=== PATIENT | female | born 1970 | race Caucasian/White ===

== ENCOUNTER → 2017-11-28 | Outpatient (CLI) | payer OTHER | LOC: CIMAGING 07:03 | PROVIDERS: ATTEND Nurse Practitioner Family | DX: E04.2 Nontoxic multinodular goiter (principal); R59.0 Localized enlarged lymph nodes | CPT/HCPCS: 76536-PO ==

== ENCOUNTER 2018-02-10 07:06 | Inpatient (IN) | payer SELFPAY ==
[2018-02-10] MEDS ORDERED: NS 1,000 ML IV ONE (07:09)
--- NOTE | 2018-02-10 07:14 | EDPHY ---
HPI/HX/ROS/PE/MDM Narrative: CHIEF COMPLAINT: Abdominal pain HPI: The patient is a 47 y/o female with a history of a tubal ligation arriving via EMS complaining of a sharp, midline abdominal pain, onset at 01:30, 6 hours ago. Prior to developing the pain she had some gas pain. However, she woke up from her sleep with the sharp, diffuse abdominal pain. This pain feels similar to the pain she had while giving . While en route to the hospital she was given 150mcg IV Fentanyl which improved her pain from 10/10 to 4/10. She has had a decreased appetite associated with the pain. She denies urinary symptoms but states that the last time she urinated it was more concentrated and had an odd smell. No fever, headache, chest pain, shortness of breath, bowel complaints , numbness, paresthesias. REVIEW OF SYSTEMS: Aside from elements discussed in the HPI, a comprehensive 10-point review of systems was reviewed and is negative. 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 ENT: Eyes are normal to inspection. ENT inspection normal. Neck: Normal inspection. Full range of motion. Respiratory: No respiratory distress. Breath sounds normal bilaterally. Cardiovascular: Regular rate and rhythm. Strong peripheral pulses. Normal cap refill. Abdomen: Moderate suprapubic tenderness to palpation. There are no peritoneal signs. There are normal bowel sounds. Back: Normal to inspection. No tenderness to palpation. Skin: Normal color. No rash. Warm and dry. Extremities: Normal appearance. Full range of motion. Neuro: Oriented x3. Normal motor function. Normal sensory function. ED Course: 709: I met EMS upon arrival. 827: Reassessed patient and discussed laboratory findings. I have also discussed plan for abdominopelvic CT, which she is comfortable with. She is still in pain, 15mg IV Toradol and 1L IV NS administered. 15: I spoke with Dr. Stone, radiologist, who reports the patient has acute appendicitis. General surgery will be paged. 20: Reassessed patient and discussed imaging findings. I have also discussed plan for surgery, which she is comfortable with. 0925: I consulted with Dr. Rai, general surgeon, who agrees to consult and admit this patient. - Data Points Imaging Results: Imaging Impressions Abdomen CT 02/10/18 08:29 Impression: 1. Appendicitis, possibly perforated, with regional inflammation. A small, 5 mm , calculus (possibly appendicolith) resides inferiorly medial to the appendix. Trace fluid. No abscess. 2. Enlarged uterus containing numerous intramural leiomyomas. Findings discussed with Emergency Department physician, Chinmay Dias MD at 02/10/2018 9:20. Imaging: Discussed imaging studies w/ call center agent Radiologist, I viewed and interpreted images myself Laboratory Results: Laboratory Results 02/10/18 07:18 02/10/18 07:18 02/10/18 02/10/18 02/10/18 07:58 07:18 07:18 WBC RBC Hgb Hct MCV MCH MCHC RDW Plt Count MPV Neut % (Auto) Lymph % (Auto) [place] % (Auto) Eos % (Auto) Baso % (Auto) Nucleat RBC Rel Count Absolute Neuts (auto) Absolute Lymphs (auto) Absolute Monos (auto) Absolute Eos (auto) Absolute Basos (auto) Absolute Nucleated RBC Immature Gran % Immature Gran # Sodium 136 mEq/L mEq/L (135-145) Potassium 3.9 mEq/L mEq/L (3.5-5.2) Chloride 101 mEq/L mEq/L (97-110) Carbon Dioxide 21 mEq/l L mEq/l (22-31) Anion Gap 14 mEq/L mEq/L (6-14) BUN 8 mg/dL mg/dL (7-23) Creatinine 0.7 mg/dL mg/dL (0.6-1.0) Estimated GFR > 60 Glucose 124 mg/dL H mg/dL (70-100) Calcium 9.5 mg/dL mg/dL (8.5-10.4) Beta HCG, Qual NEGATIVE Urine Color JEREMIAH Urine Appearance MODERATELY TURBID Urine pH 5.0 (5.0-7.5) Ur Specific [place] 1.025 (1.002-1.030) Urine Protein NEGATIVE (NEGATIVE) Urine Ketones 2+ H (NEGATIVE) Urine Blood NEGATIVE (NEGATIVE) Urine Nitrate NEGATIVE (NEGATIVE) Urine Bilirubin NEGATIVE (NEGATIVE) Urine Urobilinogen 2.0 EU H EU (0.2-1.0) Ur Leukocyte Esterase NEGATIVE (NEGATIVE) Urine Glucose NEGATIVE (NEGATIVE) 02/10/18 07:18 WBC 10.61 10^3/uL H 10^3/uL (3.80-9.50) RBC 4.53 10^6/uL 10^6/uL (4.18-5.33) Hgb 13.3 g/dL g/dL (12.6-16.3) Hct 39.6 % % (38.0-47.0) MCV 87.4 fL fL (81.5-99.8) MCH 29.4 pg pg (27.9-34.1) MCHC 33.6 g/dL g/dL (32.4-36.7) RDW 13.3 % % (11.5-15.2) Plt Count 266 10^3/uL 10^3/uL (150-400) MPV 10.5 fL fL (8.7-11.7) Neut % (Auto) 85.8 % H % (39.3-74.2) Lymph % (Auto) 8.4 % L % (15.0-45.0) [place] % (Auto) 4.5 % % (4.5-13.0) Eos % (Auto) 0.2 % L % (0.6-7.6) Baso % (Auto) 0.6 % % (0.3-1.7) Nucleat RBC Rel Count 0.0 % % (0.0-0.2) Absolute Neuts (auto) 9.11 10^3/uL H 10^3/uL (1.70-6.50) Absolute Lymphs (auto) 0.89 10^3/uL L 10^3/uL (1.00-3.00) Absolute Monos (auto) 0.48 10^3/uL 10^3/uL (0.30-0.80) Absolute Eos (auto) 0.02 10^3/uL L 10^3/uL (0.03-0.40) Absolute Basos (auto) 0.06 10^3/uL 10^3/uL (0.02-0.10) Absolute Nucleated RBC 0.00 10^3/uL 10^3/uL (0-0.01) Immature Gran % 0.5 % % (0.0-1.1) Immature Gran # 0.05 10^3/uL 10^3/uL (0.00-0.10) Sodium Potassium Chloride Carbon Dioxide Anion Gap BUN Creatinine Estimated GFR Glucose Calcium Beta HCG, Qual Urine Color Urine Appearance Urine pH Ur Specific [place] Urine Protein Urine Ketones Urine Blood Urine Nitrate Urine Bilirubin Urine Urobilinogen Ur Leukocyte Esterase Urine Glucose Medications Given: Potassium Chloride/Dextrose/Sod Cl (D5w 1/2 Ns W/ 20 Kcl/L) 1,000 mls @ 75 mls/ hr IV CONT TORSTEN Stop: 08/09/18 09:44 Last Admin: 02/10/18 11:31 Dose: 1,000 mls Discontinued Medications Sodium Chloride (Ns) 1,000 mls @ 0 mls/hr IV EDNOW ONE; Wide Open PRN Reason: Protocol Stop: 02/10/18 07:10 Last Admin: 02/10/18 07:17 Dose: 1,000 mls Ceftriaxone Sodium 2 gm/ (Sodium Chloride) 50 mls @ 100 mls/hr IV EDNOW ONE PRN Reason: Protocol Stop: 02/10/18 10:13 Last Admin: 02/10/18 12:06 Dose: 50 mls Ketorolac Tromethamine (Toradol) 15 mg IVP EDNOW ONE Stop: 02/10/18 08:37 Last Admin: 02/10/18 08:39 Dose: 15 mg General Time Seen by Provider: 02/10/18 07:09 Initial Vital Signs: Initial Vital Signs Temperature (C) 37.0 C 02/10/18 07:10 Heart Rate 82 02/10/18 07:10 Respiratory Rate 18 02/10/18 07:10 Blood Pressure 128/76 H 02/10/18 07:10 O2 Sat (%) 97 02/10/18 07:10 O2 Delivery Mode Room Air Allergies/Adverse Reactions: Penicillins Allergy (Mild, Verified 02/10/18 11:57) Other-Enter Comments Home Medications: Medication Instructions Recorded Thyroid [[place] Thyroid 60 MG (*)] 30 mg PO DAILY 02/10/18 Departure - Departure Disposition: [facility] Inpatient Acute Clinical Impression: Acute appendicitis Qualifiers: Acute appendicitis type: unspecified acute appendicitis type Qualified Code(s) : K35.80 - Unspecified acute appendicitis Condition: Fair Report Scribed for: Chinmay Dias Report Scribed by: Mckenzie Merchant Date of Report: 02/10/18 Time of Report: 07:10 Physician Review and Approval Statement: Portions of this note were transcribed by an ED scribe. I personally performed the history, physical exam, and medical decision making; and confirm the accuracy of the information in the transcribed note.
[2018-02-10 07:22] LABS: PLATELET COUNT 266 10^3/uL (150-400)
[2018-02-10] MEDS ORDERED: KETOROLAC 30 MG/1 ML SDV IVP ONE (08:36)
[2018-02-10] MEDS ORDERED: IOPAMIDOL (ISOVUE 370) 100 ML BTL IV ONE (08:53)
[2018-02-10] MEDS ORDERED: ONDANSETRON 4 MG/2 ML VIAL IVP PRN ×2 (09:42→15:14)
[2018-02-10] MEDS ORDERED: ACETAMINOPHEN 325 MG TAB PO PRN (09:42)
[2018-02-10] MEDS ORDERED: PROMETHAZINE HCL 25 MG/ML INJ IVP PRN ×2 (09:42→15:14)
[2018-02-10] MEDS ORDERED: HYDROCODONE/APAP 5/325 TAB PO PRN ×2 (09:42→15:14)
[2018-02-10] MEDS ORDERED: D5W 1/2 NS W/ 20 KCl/L 1,000 ML IV SCH (09:45)
--- NOTE | 2018-02-10 10:11 | GHP ---
DATE OF ADMISSION: 02/10/2018 CHIEF COMPLAINT: Acute appendicitis. HISTORY OF PRESENT ILLNESS: The patient is a 47-year-old woman who 1 week ago started having left up per quadrant pain. She thought she was having gas pain. It would come and go. She was at a yoga re treat and again had the pain in the left upper quadrant; however, it migrated down to her pelvis area , so she originally thought that she was having some issues with her reproductive system. She then h ad pain by her rectum. When the pain woke her up with more of a right lower quadrant pain, she asked a nurse at the yoga retreat, and then she was brought to [facility]. CT scan shows inflamed appendix w ith possible fecalith outside of the appendix. She denies fevers. She denies vomiting. She does en dorse anorexia. PAST MEDICAL HISTORY: Hypothyroidism. PAST SURGICAL HISTORY: Tubal ligation. 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 She likes to do yoga and run. She is a nonsmoker. FAMILY HISTORY: Noncontributory. REVIEW OF SYSTEMS: Per HPI. PHYSICAL EXAMINATION: VITAL SIGNS: 37, 82, 128/76, 18, 97% room air. GENERAL: Pleasant, well-groo med, well-nourished woman sitting on gurney. Appears nontoxic. HEENT: Normocephalic. No gross hea ring deficits. Mucous membranes moist. Pupils equal and round. No scleral icterus. LUNGS: Clear to auscultation bilaterally. No increased work of breathing. CARDIAC: Regular rate. No peripheral edema. ABDOMEN: Bowel sounds are present. She is tender to palpation in the left upper quadrant. She has very minimal pain in the right lower quadrant or near her pelvis. MUSCULOSKELETAL: Normal nails. NEURO: Grossly intact. PSYCH: Mood and affect normal. RESULTS REVIEWED: Personally reviewed the results of her laboratory work, and she has ketones in her urine. Her chemistry panel is within normal limits. Beta HCG negative. Her white blood cell count is 10.61. I reviewed the results of her CT scan and see the concern of the extraluminal appendicoli th. There is also some lucent area in the uterus as well. IMPRESSION AND PLAN: The patient is a 47-year-old woman with possible perforated appendicitis. Cookie rkable that her white count is not more elevated and that she does not have a lot of pain in the righ t lower quadrant. I will take her to the operating room for a laparoscopic appendectomy with possibl e washout. I discussed that if it is not perforated, she may be able to go home today; however, if i t is perforated, she will require admission with additional IV antibiotics. Risks and benefits were discussed. She signed the informed consent. Her reaction to penicillin as a child was that she turn ed red. We discussed the possible cross reactivity with ceftriaxone, and we will proceed with giving it while watching her. /[id number]/MODL
--- NOTE | 2018-02-10 12:47 | ASMTCMCOM ---
CM Note CM Note Notes: Reviewed chart. Pt presented to the Emergency Department with left and right upper quadrant pain. History includes hypothyroidism and a tubal ligation. 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 Discharge needs remain unclear at this time. Anticipate pt will likely discharge home independently when medically stable. CM will continue to follow. Discharge Plan: Likely independent, CM to follow for any potential needs Date Signed: 02/10/2018 12:47 PM Electronically Signed By:Shyla Rubio RN
[2018-02-10] MEDS ORDERED: BUPIVACAINE 0.5% 30 ML SDV ONE (13:35)
[2018-02-10] MEDS ORDERED: LR 1,000 ML IV ONE (14:18)
[2018-02-10] MEDS ORDERED: MIDAZOLAM 2 MG/2 ML VIAL IVP ONE (14:34)
[2018-02-10] MEDS ORDERED: MIDAZOLAM 2 MG/2 ML VIAL ONE (14:38)
--- NOTE | 2018-02-10 14:39 | PDANEPAE ---
ANE History of Present Illness rashawn HAIDER Past Medical History - Cardiovascular History Hx Hypertension: No Hx Arrhythmias: No Hx Chest Pain: No Hx Coronary Artery / Peripheral Vascular Disease: No Hx CHF / Valvular Disease: No Hx Palpitations: No - Pulmonary History Hx COPD: No Hx Asthma/Reactive Airway Disease: No Hx Recent Upper Respiratory Infection: No Hx Oxygen in Use at Home: No Hx Sleep Apnea: No Sleep Apnea Screening Result - Last Documented: Negative - Endocrine History Hx Diabetes: No Obesity: no - Chronic Pain History Chronic Pain: No ANE Review of Systems Review of systems is: negative Review of Systems: - Exercise capacity Exercise capacity: >=4 METS ANE Patient History - Allergies Allergies/Adverse Reactions: Penicillins Allergy (Mild, Verified 02/10/18 11:57) Other-Enter Comments - Home Medications Home Medications: Thyroid [[place] Thyroid 60 MG (*)] 30 mg PO DAILY 02/10/18 [Last Taken 02/09/18] - NPO status NPO Since - Liquids (Date): 02/09/18 NPO Since - Liquids (Time): 22:00 NPO Since - Solids (Date): 02/09/18 NPO Since - Solids (Time): 22:00 - Smoking Hx Smoking Status: Never smoked ANE Labs/Vital Signs - Labs Result Diagrams: 02/10/18 07:18 02/10/18 07:18 - Vital Signs Blood Pressure: 115/64 Heart Rate: 83 Respiratory Rate: 16 O2 Sat (%): 96 Height: 165.1 cm Weight: 68 kg ANE Physical Exam - Airway Neck exam: FROM Mallampati Score: Class 1 Mouth exam: normal dental/mouth exam - Pulmonary Pulmonary: no respiratory distress - Cardiovascular Cardiovascular: regular rate and rhythym - ASA Status ASA Status: II, E ANE Anesthesia Plan Anesthesia Plan: general endotracheal anesthesia
[2018-02-10] MEDS ORDERED: fentaNYL 100 MCG/2 ML INJ ONE ×2 (14:42→15:09)
[2018-02-10] MEDS ORDERED: PROPOFOL 200 MG/20 ML VIAL ONE (14:42)
[2018-02-10] MEDS ORDERED: LIDOCAINE 2% 5 ML SDV ONE ×2 (14:43→16:01)
[2018-02-10] MEDS ORDERED: ROCURONIUM 50 MG/5 ML VIAL ONE (14:43)
[2018-02-10] MEDS ORDERED: DEXAMETHASONE 4 MG/ML VIAL ONE (15:01)
[2018-02-10] MEDS ORDERED: METOCLOPRAMIDE 10 MG/2 ML VIAL IVP PRN (15:14)
[2018-02-10] MEDS ORDERED: NALOXONE HCL 0.4 MG/ML INJ IVP PRN (15:14)
[2018-02-10] MEDS ORDERED: fentaNYL 100 MCG/2 ML INJ IVP PRN (15:14)
[2018-02-10] MEDS ORDERED: ALBUTEROL 3 ML DEYVIAL IH PRN (15:14)
[2018-02-10] MEDS ORDERED: LR 500 ML IV PRN (15:14)
[2018-02-10] MEDS ORDERED: HYDROmorphONE/DILAUDID 2 MG/ML INJ IVP PRN (15:14)
[2018-02-10] MEDS ORDERED: ACETAMINOPHEN 500 MG TAB PO PRN (15:14)
[2018-02-10] MEDS ORDERED: oxyCODONE IR 5 MG TAB PO PRN (15:14)
--- NOTE | 2018-02-10 15:14 | POSTANESTH ---
Post Anesthetic Evaluation Cardiovascular Status: Normal, Stable Respiratory Status: Normal, Stable Level of Consciousness/Mental Status: Can Participate in Eval, Alert and Oriented Pain Control: Adequate, Prn Tx Ordered Nausea/Vomiting Control: Adequate, Prn Tx Ordered Complications Possibly Related to Anesthesia: None Noted
[2018-02-10] MEDS ORDERED: KETOROLAC 15 MG/1 ML SDV IVP PRN (15:50)
--- NOTE | 2018-02-10 15:55 | POSTOPPROG ---
Post Op Note Date of Operation: 02/10/18 Surgeon: Fallon Rai Anesthesiologist: terell Anesthesia: GET(General Endotracheal) Pre-op Diagnosis: perf appy Post-op Diagnosis: perf appy Indication: 47 yo with perf appy Procedure: lap appy with washout Findings: perforated appendix. Large uterus with fibroids Inf/Abcess present in the surg proc area at time of surgery?: Yes Depth: Organ Space EBL: Minimal Drains: Javy Rene Specimen(s): micro and path
--- NOTE | 2018-02-10 16:03 | GOP ---
DATE OF OPERATION: 02/10/2018 SURGEON: Fallon Rai MD ANESTHESIA: General. ANESTHESIOLOGIST: Kimani Iglesias MD. PREOPERATIVE DIAGNOSIS: Perforated appendicitis. POSTOPERATIVE DIAGNOSIS: Perforated appendicitis. PROCEDURE PERFORMED: Laparoscopic appendectomy with washout and drain placement. FINDINGS: perforated appendix with fluid in gutter and pelvis SPECIMENS: Appendix and fluid for microbiology. ESTIMATED BLOOD LOSS: 5 cc. INDICATIONS: The patient is a 47-year-old woman who presented with left upper quadrant pain, pelvic pain and right lower quadrant pain. CT scan showed possible ruptured appendicitis. DESCRIPTION OF PROCEDURE: Patient was brought into the operating room, placed supine on the table. General anesthesia was administered. Her abdomen was prepped and draped in the usual sterile fashion. I infiltrated all sites with 0.5% Marcaine prior to making incisions. I made the incision at her umbilicus. I elevated it. I inserted the Veress needle and passed the hanging drop test. Her abdomen insufflated easily to a pressure of 15 mmHg. I placed a 5 mm trocar with a camera at this site. There were no injuries from Veress needle placement. Under direct vision, I placed a 5 mm suprapubic trocar and a 10 mm trocar in the left lower quadrant. I explored her abdomen. There was purulent fluid along the right paracolic gutter and in the pelvis. She had a generous-sized uterus with fibroids on it. I performed suction and submitted a sample for microbiology. Next, I dissected the appendix away from the cecum. It was in a retrocecal position. There was an obvious rupture point. I transected the mesoappendix with the Harmonic Scalpel. I divided the base with an Endo MIRANDA 45 white load. The appendix was placed in an EndoCatch bag and retrieved via the 10 mm trocar. Suction irrigation was performed. I placed a 15 round silicone drain via the pubic port into her pelvis and up along the right paracolic gutter. It was sutured in place with 3-0 nylon. All ports removed under direct vision, the abdomen allowed to desufflate. The fascia at the 10 mm trocar site was closed with 0 Vicryl, skin closed with 4-0 Monocryl. Dermabond applied. Drain sponge applied. She was awakened in the operating room, extubated, transferred to PACU in stable condition. /[id number]/MODL MTDD
--- NOTE | 2018-02-11 07:04 | PDMN ---
Medical Necessity Medical necessity: MCG: S185 appendicitis with abscess or peritonitis by Lap 2 days: OP: Lap appy with washout - perf appy with abscess CHELSEY drain placed
[2018-02-11] MEDS ORDERED: THYROID 60 MG TAB PO SCH (09:00)
[2018-02-11] MEDS ORDERED: PIPERACILLIN/TAZO 4.5 GM/DEX 100 ML IV SCH (09:00)
[2018-02-11] MEDS: PIPERACILLIN/TAZO 4.5 GM/DEX 100 ML IV SCH ×3 (09:39→21:50)
--- NOTE | 2018-02-11 09:39 | SOAPPROG ---
SOAP Progress Note Assessment/Plan: Assessment: POD # 2 s/p lap appy for perforated appendix Micro with GNR and GPC Home with Augmentin Has return of bowel function - advance diet Can discharge home S:Doing well CHELSEY drain with serosanguinous fluid Abdomen soft and non tender BS present Lying in bed, pleasant and cheerful Plan: 02/11/18 09:39 02/11/18 09:39 02/12/18 07:49 Objective: Vital Signs Temp Pulse Resp BP Pulse Ox 37.2 C 85 16 106/73 97 02/11/18 08:14 02/11/18 08:14 02/11/18 08:14 02/11/18 08:14 02/11/18 08:14 ICD10 Worksheet Patient Problems: Problems Problem Status Onset Acute appendicitis Acute
[2018-02-11] MEDS: ENOXAPARIN 40 MG/0.4 ML SYR SC SCH (09:45)
[2018-02-11 09:46] LABS: PLATELET COUNT 241 10^3/uL (150-400)
--- NOTE | 2018-02-11 12:39 | ASMTCMCOM ---
CM Note CM Note Notes: Chart reviewed. Patient post op day 1 s/p lap appendectomy. On antibiotics. Diet progressing. No needs anticipated. CM available should needs arise. Plan: Likely to dc to home independent when medically cleared for discharge. Date Signed: 02/11/2018 12:38 PM Electronically Signed By:Lina Armas RN
[2018-02-12] MEDS: PIPERACILLIN/TAZO 4.5 GM/DEX 100 ML IV SCH ×2 (03:49→11:02)
[2018-02-12] MEDS ORDERED: LACTULOSE 20 GM/30 ML UDCUP PO PRN (07:09)
[2018-02-12] MEDS ORDERED: BISACODYL 10 MG SUPP PR PRN (07:09)
[2018-02-12] MEDS ORDERED: MAGNESIUM HYDROXIDE 30 ML UDCUP PO PRN (07:09)
[2018-02-12] MEDS ORDERED: POLYETHYLENE GLYCOL 3350 17 GM PKT PO PRN (07:09)
[2018-02-12 07:53] VITALS: BP 126/72
[2018-02-12] MEDS ORDERED: THYROID 60 MG TAB PO SCH (09:00)
[2018-02-12] MEDS ORDERED: SENNOSIDES/DOCUSATE SODIUM TAB PO SCH (09:00)
--- NOTE | 2018-02-12 10:15 | ASDISCHSUM ---
Discharge Information Plan Status:Home with No Needs Medically Cleared to Leave:02/11/2018 Discharge Date:02/11/2018 CM D/C Disposition:Home, Routine, Self-Care ADT D/C Disposition:Home, Routine, Self-Care Projected Discharge Date:02/11/2018 Transportation at D/C: Discharge Delay Reason: Follow-Up Date:02/11/2018 Discharge Slot: Final Diagnosis: Placement Information Patient Contact Information Contact Name:GAYE Relationship:Friend Address:[address] City:[place] Phone: [facility]/Zip Code:[place] [address] Email: Financial Information Financial Class:Self-Pay Primary Plan Desc:SELF PAY Primary Plan Number: Secondary Plan Desc: Secondary Plan Number: Assessment Information LACE LACE Length of stay for Answers: 1 day current admission Acuity / Level of Answers: No Care: Did the patient have an inpatient admission? Comorbidities - select Answers: Other Notes: Tubal all that apply ligation, Hypothyroidis m # of Emergency department Answers: 1-2 visits in the last 6 months Score: 3 Date Signed: 02/12/2018 10:14 AM Electronically Signed By:Lina Armas RN [facility] CM Progress Note CM Note CM Note Notes: Reviewed chart. Pt presented to the Emergency Department with left and right upper quadrant pain. History includes hypothyroidism and a tubal ligation. 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 Discharge needs remain unclear at this time. Anticipate pt will likely discharge home independently when medically stable. CM will continue to follow. Discharge Plan: Likely independent, CM to follow for any potential needs Date Signed: 02/10/2018 12:47 PM Electronically Signed By:Shyla Rubio RN [facility] CM Progress Note CM Note CM Note Notes: Chart reviewed. Patient post op day 1 s/p lap appendectomy. On antibiotics. Diet progressing. No needs anticipated. CM available should needs arise. Plan: Likely to dc to home independent when medically cleared for discharge. Date Signed: 02/11/2018 12:38 PM Electronically Signed By:Lina Armas RN Intervention Information
[2018-02-12] MEDS: ENOXAPARIN 40 MG/0.4 ML SYR SC SCH (11:01)
== END 2018-02-12 11:20 | disposition home or self-care (01) | DRG 343 ==
LOC: EDUNIT# → F1N 10:35 → OBSVTOIN 02-11 07:05
PROVIDERS: ADMIT Surgery; ATTEND Surgery
PROC: 0DTJ4ZZ Resection of Appendix, Percutaneous Endoscopic Approach (ICD-10-PCS; principal; 2018-02-11)
DX: K35.20 Acute appendicitis with generalized peritonitis, without abscess (principal); E03.9 Hypothyroidism, unspecified
CPT/HCPCS: 96374; G0378; J0696; J1100; J1885; J2250; J2543; J2704; J3010; Q9967